=== PATIENT | female | born 1960 | race Caucasian/White ===

== ENCOUNTER 2016-12-01 06:17 | Day surgery (SDC) | payer OTHER ==
[2016-12-01] MEDS ORDERED: LIDOCAINE 2% MDV (20MG/ML) 20ML VIAL IV ONE (14:00)
[2016-12-01] MEDS ORDERED: PROPOFOL 10 MG/ML VIAL IV ONE (14:00)
[2016-12-01] MEDS ORDERED: MIDAZOLAM HCL 2MG/2ML VIAL IV ONE (14:00)
--- NOTE | 2016-12-04 07:41 | Operative Note ---
DATE OF SURGERY: 12/01/2016 SURGEON: Darby Guillory MD OPERATION: COLONOSCOPY. INDICATIONS: This is a 56-year-old female with average risk for colorectal cancer which presented for screening colonoscopy. POSTOPERATIVE DIAGNOSES: 1. An 8 mm sessile descending colon polyp that was removed by snare cautery. 2. Otherwise normal colon. 3. The bowel preparation was suboptimal. ANESTHESIA: Sedation is per Anesthesia. Pulse oximetry was monitored throughout the procedure to maintain O2 saturation of 90% or greater. Supplemental oxygen was administered via nasal cannula. Cardiac and vital signs were monitored throughout the duration of the procedure, and they were stable. The procedure of colonoscopy and risks and benefits of the procedure, including the risk of bleeding and perforation, among others, were explained to the patient who voiced understanding and desired to have the procedure done. Physical examination was performed, and the patient was found stable for sedation. PROCEDURE: The patient was placed in the left lateral position. Sedation was initiated. A digital rectal exam was performed and showed some mild external hemorrhoids with no palpable rectal masses. An Olympus PCF-180AL colonoscope was then inserted into the rectum under direct visualization. It was advanced to the cecum without difficulty. The ileocecal valve and appendiceal orifice were identified and photographed. The colonic mucosa was carefully examined upon introduction of the colonoscope. The bowel preparation was suboptimal. In the descending colon was an 8 mm sessile polyp that was noted and was removed by snare cautery. There were no other lesions noted. The colonoscope was then withdrawn while carefully examining the colonic mucosal surfaces. No other lesions were noted. In the rectum, retroflexion was performed and grade 1 internal hemorrhoids were noted. The colonoscope was then withdrawn and the procedure was terminated. The patient tolerated the procedure well without any immediate complications. She remained with stable vital signs and was transferred to the recovery room. RECOMMENDATIONS: She is to be on a low-residue diet for the next couple of weeks and to avoid any aspirin or Aspirin-like medications for 2 weeks. She is to have repeat colonoscopy for surveillance in 3 years given the suboptimal bowel preparation. Thank you for allowing me to participate in the care of your patient. Darby Guillory MD CC: Dr. Beatriz HARRIS
== END 2016-12-01 08:32 | disposition home or self-care (01) ==
LOC: HOP 06:17
PROVIDERS: ATTEND Internal Medicine Gastroenterology
DX: Z12.11 Encounter for screening for malignant neoplasm of colon (principal); D12.4 Benign neoplasm of descending colon; E11.9 Type 2 diabetes mellitus without complications; Z79.4 Long term (current) use of insulin; I10 Essential (primary) hypertension; E78.00 Pure hypercholesterolemia, unspecified

== ENCOUNTER 2019-01-17 10:15 | Inpatient (IN) | payer BC, OTHER ==
[2019-01-17] MEDS ORDERED: 0.9 % SODIUM CHLORIDE 1,000 ML BAG IV ONE (10:22)
[2019-01-17] MEDS ORDERED: ONDANSETRON HCL IV 4 MG/2 ML VIAL IVP ONE (10:22)
--- NOTE | 2019-01-17 10:28 | Emergency Department Record ---
History of Present Illness - General Chief complaint: Vomiting Stated complaint: VOMITING Time Seen by Provider: 01/17/19 10:21 Source: Patient Mode of Arrival: Ambulatory Limitations: No limitations - History of Present Illness Initial comments: 58 yo female presents with fatigue, nausea, vomiting and elevated blood sugar. She states the onset was yesterday when she started to not feel well. She began vomiting late in the evening. She states her glucometer read at home. It is 546 on arrival at the bedside. She does not recall the last time she had a normal reading but she thinks it was recently. She has not seen her welfare director in over a year. No fever, chest pain, cough, shortness of breath, abdominal pain, or diarrhea. PCP is Dr Beatriz VIRK complaint: Nausea, Vomiting, Other (Elevated blood sugar) Onset/Timin -: Days(s) Description of Vomiting: Watery Description of Diarrhea: Other (None) Location: Other (None) Quality: Other Consistency: Intermittent Improves with: None Worsens with: None Context: Other (Diabetic) Associated Symptoms: Denies other symptoms - Related Data Home Medications Medication Instructions Recorded Confirmed Last Taken Insulin Aspart [Novolog] 1 unit SQ WMEALS 01/17/19 01/17/19 Unknown Insulin Glargine,Hum.rec.anlog 40 unit SQ QAM 01/17/19 01/17/19 01/17/19 [Lantus] Topiramate [Topamax] 100 mg PO DAILY 01/17/19 01/17/19 Unknown Allergies Allergy/AdvReac Type Severity Reaction Status Date / Time No Known Drug Allergies Allergy Verified 01/17/19 10:22 Travel Screening - Travel/Exposure Within Last 30 Days Have you traveled within the last 30 days?: No Review of Systems Constitutional: Reports: Malaise, Weakness. Denies: Chills, Fever Eyes: Denies: Eye discharge ENT: Denies: Congestion, Throat pain Respiratory: Denies: Cough, Dyspnea, Hemoptysis, Stridor, Wheezes Cardiovascular: Denies: Chest pain, Palpitations, Syncope Endocrine: Reports: Fatigue, Polydipsia, Polyuria Gastrointestinal: Reports: Nausea, Vomiting. Denies: Abdominal pain, Constipation, Diarrhea, Hematemesis, Hematochezia, Melena Genitourinary: Denies: Dysuria, Urgency Musculoskeletal: Denies: Arthralgia, Back pain, Myalgia Skin: Denies: Bruising, Change in color, Rash Neurological: Denies: Confusion, Headache Psychiatric: Denies: Anxiety Hematological/Lymphatic: Denies: Anemia, Blood Clots, Easy bleeding, Easy bruising, Swollen glands Past Medical History - SOCIAL HISTORY Smoking Status: Light tobacco smoker (<10/day) - RESPIRATORY Hx Respiratory Disorders: No - CARDIOVASCULAR Hx Cardio Disorders: Yes Hx Hypertension: Yes Comment:: high cholesterol - NEURO Hx Neuro Disorders: Yes Hx of Migraines: Yes - GI Hx GI Disorders: No - Hx Genitourinary Disorders: No - ENDOCRINE Hx Endocrine Disorders: Yes Hx Diabetes: Yes - MUSCULOSKELETAL Hx Musculoskeletal Disorders: Yes - PSYCH Hx Psych Problems: No - HEMATOLOGY/ONCOLOGY Hx Hematology/Oncology Disorders: No Family Medical History Hx Cancer: Mother, Brother/Sister Hx Heart Disease: Mother Physical Exam - General General Appearance: Alert, Oriented x3, Cooperative, No acute distress Limitations: No limitations - Head Head exam: Atraumatic, Normal inspection - Eye Eye exam: Normal appearance. negative: PERRL, Conjunctival injection, Periorbital swelling, Scleral icterus - ENT ENT exam: Normal exam, Mucous membranes moist, Normal external ear exam Ear exam: Normal external inspection Nasal Exam: Normal inspection Mouth exam: Normal external inspection Teeth exam: Normal inspection Throat exam: Normal inspection - Neck Neck exam: Normal inspection, Full ROM. negative: Tenderness - Respiratory Respiratory exam: Normal lung sounds bilaterally. negative: Respiratory distress - Cardiovascular Cardiovascular Exam: Normal rhythm, Normal heart sounds, Tachycardia Peripheral Pulses: 2+: Radial (R), Radial (L) - GI/Abdominal GI/Abdominal exam: Soft. negative: Distended, Guarding, Tenderness - Rectal Rectal exam: Deferred - exam: Deferred - Extremities Extremities exam: Normal inspection. negative: Normal capillary refill, Tenderness - Back Back exam: Denies: CVA tenderness (R), CVA tenderness (L), Tenderness - Neurological Neurological exam: Alert, Oriented X3 - Psychiatric Psychiatric exam: Normal affect, Normal mood - Skin Skin exam: Dry, Intact, Normal color, Warm Course - Reevaluation(s) Reevaluation #1: The CBC was reviewed The WBC is 15 The Venous pH is 7.14 01/17/19 10:59 01/17/19 11:07 Magnesium is 2.2 01/17/19 11:07 EKG EKG #1: 11:02 Rate: 97 Rhythm: sinus [place]: RAD Intervals: QTc 486, QRS 134 ST segments: LVH Prior: no prior 01/17/19 11:11 Acetone large 01/17/19 11:36 The HCO3 is 10 The AG is 35 The BUN is 27 The CR is 1.1 Mg is 2.2 Lipase normal 01/17/19 11:37 Troponin is normal 01/17/19 11:41 I VICTOR MANUEL Rodrigez PRESS ROOM SUPERVISOR. She accepts the patient for admission for further treatment of DKA 01/17/19 11:48 Normal mental status, normal vitals, stable for admission to [facility] Medical Decision Making - Management Options MDM Management: Additional Work-up Planned (e.g. ADM/Transfer/OP Study) - Data Complexity MDM Data: Labs Ordered and/or Reviewed, EKG Ordered and/or Reviewed, Independent Visualization of Image, Tracing, or Specimen, Discussion of Test Results With Performing Physician - Lab Data Result diagrams: 01/17/19 10:35 01/17/19 10:35 - EKG Data -: EKG Interpreted by Pr Critical Care Time Critical Care Time: Yes Total Critical Care Time: 75 Disposition Disposition: Admit Clinical Impression: Diabetic ketoacidosis Qualifiers: Diabetes mellitus type: other specified (including LELO) Diabetes mellitus complication detail: without coma Qualified Code(s): E13.10 - Other specified diabetes mellitus with ketoacidosis without coma Disposition: Still a Patient at [facility] Decision to Admit: Admit from ER Decision to Admit Date: 01/17/19 Decision to Admit Time: 11:45 Condition: (2) Stable Time of Disposition: 11:45 Quality - Quality Measures Quality Measures: N/A - Blood Pressure Screening Does Patient Have Any of the Following: No Blood Pressure Classification: Pre-Hypertensive BP Reading Systolic Measurement: 126 Diastolic Measurement: 55 Screening for High Blood Pressure: < Pre-Hypertensive BP, F/U Documented > [ [id number]] Pre-Hypertensive Follow-up Interventions: Referral to alternative/primary care provider.
[2019-01-17 10:50] LABS: BASO % 0.1 % (0-6); EOS % 0.1 % (0-6); HEMATOCRIT 47.7 % (35.0-47.0); HEMOGLOBIN 15.9 gm/dl (11.6-16.0); LYMPH % 5.6 % (16-45); MEAN CELL VOLUME 93.7 fl (81-97); MEAN CORPUSCULAR HEMOGLOBIN 31.2 pg (27-33); MEAN CORPUSCULAR HGB CONC 33.3 g/dl (32-36); MEAN PLATELET VOLUME 9.5 fl (7.4-10.4); MONO % 2.3 % (0-9); PLATELET COUNT 367 K/uL (130-400); RED BLOOD COUNT 5.09 M/uL (3.80-5.40); RED CELL DISTRIBUTION WIDTH 12.9 % (11.5-14.5); WHITE BLOOD COUNT W/O DIFF 15.7 K/uL (4.2-12.2)
[2019-01-17 11:03] LABS: BLOOD UREA NITROGEN 27 mg/dL (6-20); CREATININE 1.1 mg/dL (0.5-0.9); EST GLOMERULAR FILTRATION RATE 54 mL/min; LIPASE 26 U/L (13-60); TOTAL PROTEIN 7.8 g/dL (6.6-8.7)
[2019-01-17 11:07] LABS: ACETONE,SERUM LARGE (NEGATIVE)
[2019-01-17 11:08] LABS: ALB/GLOB RATIO 1.3 (1.1-1.8); ALBUMIN 4.4 g/dL (4.0-5.0); ALKALINE PHOSPHATASE 152 U/L (35-104); ALT/SGPT 22 U/L (<33); AST/SGOT 20 U/L (10.0-35.0)
[2019-01-17 11:22] LABS: GLUCOSE,RANDOM 527 mg/dL (74-109)
[2019-01-17] MEDS ORDERED: INSULIN REGULAR, HUMAN 100 UNIT in 0.9 % SODIUM CHLORIDE 100ML 100 ML IV SCH ×4 (11:45→12:38)
[2019-01-17] MEDS ORDERED: ACETAMINOPHEN 500 MG TABLET PO PRN (12:38)
[2019-01-17] MEDS ORDERED: SOD CHLOR 0.9% WITH KCL 40MEQ 40 MEQ/1,000 ML IV.SOLN IV ONE (12:38)
[2019-01-17 14:23] LABS: BLOOD UREA NITROGEN 29 mg/dL (6-20); EST GLOMERULAR FILTRATION RATE > 60 mL/min; GLUCOSE,RANDOM 243 mg/dL (74-109)
--- NOTE | 2019-01-17 15:52 | History & Physical ---
History of Present Illness - Date of Service Date of Service for History & Physical: 01/18/19 - History of Present Illness Admitting Diagnosis: DKA History of Present Illness: 58 year old female patient presents to ED with fatigue, nausea, vomiting, and elevated blood sugars at home for the past 12 hours. Patient states she started feeling fatigued evening, and started vomiting that night. Patient reported her home glucometer read "high". Upon arrival to ED, her blood sugar was 546. Patient states she has not seen her patrol agent in over a year. Denied fever, chest pain, cough, shortness of breath, abdominal pain, or diarrhea. Patient reports 1 previous episode of DKA. Patient's past medical history includes Type 1 IDDM, and basal artery migraines. PCP: Dr. Henderson ED Course: WBC 15 Venous pH 7.14 EKG: Rate 97, NSR Large Acetone HCO3 10 Anion Gap 35 BUN 27 Cr 1.1 Lipase normal, troponin negative NS with potassium and insulin drip started at 5U/hr 01/17/19: Patient A&O x 4, resting comfortably in bed with family at bedside. Patient denies any nausea or vomiting at this time, reports fatigue. Has been tolerating ice chips. Will continue insulin drip until acidosis resolves. Travel Screening - Travel/Exposure Within Last 30 Days Have you traveled within the last 30 days?: No - Travel/Exposure Within Last Year Have you traveled outside the [place] in the last year?: No - Additonal Travel Details Have you been exposed to anyone with a communicable illness?: No - Travel Symptoms Symptom Screening: None Review of Systems Reviewed: No additional complaints except as noted below Constitutional: Reports: Malaise, Weakness. Denies: Chills, Fever Eyes: Denies: Eye discharge ENT: Denies: Congestion, Throat pain Respiratory: Denies: Cough, Dyspnea, Hemoptysis, Stridor, Wheezes Cardiovascular: Denies: Chest pain, Palpitations, Syncope Endocrine: Reports: Fatigue, Polydipsia, Polyuria Gastrointestinal: Reports: Nausea, Vomiting. Denies: Abdominal pain, Constipation, Diarrhea, Hematemesis, Hematochezia, Melena Genitourinary: Denies: Dysuria, Urgency Musculoskeletal: Denies: Arthralgia, Back pain, Myalgia Skin: Denies: Bruising, Change in color, Rash Neurological: Denies: Confusion, Headache Psychiatric: Denies: Anxiety Hematological/Lymphatic: Denies: Anemia, Blood Clots, Easy bleeding, Easy bruising, Swollen glands Past Medical History - SOCIAL HISTORY Smoking Status: Light tobacco smoker (<10/day) - RESPIRATORY Hx Respiratory Disorders: No - CARDIOVASCULAR Hx Cardio Disorders: Yes Hx Hypertension: Yes Comment:: high cholesterol - NEURO Hx Neuro Disorders: Yes Hx of Migraines: Yes - GI Hx GI Disorders: No - Hx Genitourinary Disorders: No - ENDOCRINE Hx Endocrine Disorders: Yes Hx Diabetes: Yes - MUSCULOSKELETAL Hx Musculoskeletal Disorders: Yes - PSYCH Hx Psych Problems: No - HEMATOLOGY/ONCOLOGY Hx Hematology/Oncology Disorders: No Family Medical History Hx Cancer: Mother, Brother/Sister Hx Heart Disease: Mother H&P Meds/Allergies - Allergies Allergies: Allergies Allergy/AdvReac Type Severity Reaction Status Date / Time No Known Drug Allergies Allergy Verified 01/17/19 10:22 - Home Medications Home Medications Medication Instructions Recorded Confirmed Last Taken Insulin Aspart [Novolog] 1 unit SQ WMEALS 01/17/19 01/17/19 Unknown Insulin Glargine,Hum.rec.anlog 40 unit SQ QAM 01/17/19 01/17/19 01/17/19 [Lantus] Topiramate [Topamax] 100 mg PO DAILY 01/17/19 01/17/19 Unknown - Active Medications Active Medications: Current Medications Acetaminophen (Tylenol 500mg Tab) 1,000 mg PO Q6H PRN PRN Reason: PAIN - MILD(1-4)/FEVER Enoxaparin Sodium (Lovenox) 40 mg SC DAILY TR Insulin Human Regular 100 unit (/ Sodium Chloride) 101 mls @ 5.05 mls/hr IV TITRATE TR; Protocol Last Admin: 01/17/19 12:16 Dose: 5 units/hr, 5.05 mls/hr Insulin Human Regular 100 unit (/ Sodium Chloride) 101 mls @ 5.05 mls/hr IV TITRATE TR; Protocol Potassium Chloride/Sodium Chloride (Potassium Chl 40meq/) 40 meq in 1,000 mls @ 150 mls/hr IV NOW ONE Stop: 01/17/19 19:17 Last Admin: 01/17/19 14:19 Dose: 150 mls/hr Physical Exam - Vital Signs Vital Signs: Vital Signs - Last 24 Hrs Temp Pulse Pulse Pulse Resp BP BP 01/17/19 12:48 91 H 18 112/59 01/17/19 12:45 98.5 F 94 H 17 119/63 01/17/19 11:14 98 H 20 128/64 01/17/19 10:20 97.8 F 106 H 20 126/55 Pulse Ox 01/17/19 12:48 96 01/17/19 12:45 97 01/17/19 11:14 96 01/17/19 10:20 98 - General General Appearance: Alert, Oriented x3, Cooperative, No acute distress Limitations: No limitations - Head Head exam: Atraumatic, Normal inspection - Eye Eye exam: Normal appearance. negative: PERRL, Conjunctival injection, Periorbital swelling, Scleral icterus - ENT ENT exam: Normal exam, Mucous membranes dry Ear exam: Normal external inspection Nasal Exam: Normal inspection Mouth exam: Normal external inspection - Neck Neck exam: Normal inspection, Full ROM. negative: Tenderness - Respiratory Respiratory exam: Normal lung sounds bilaterally. negative: Respiratory distress - Cardiovascular Cardiovascular Exam: Regular rate, Normal rhythm, Normal heart sounds Peripheral Pulses: 2+: Radial (R), Radial (L), Dorsalis Pedis (R), Dorsalis Pedis (L) - GI/Abdominal GI/Abdominal exam: Soft. negative: Distended, Guarding, Tenderness - Rectal Rectal exam: Deferred - exam: Deferred - Extremities Extremities exam: Normal inspection, Normal capillary refill. negative: Tenderness - Back Back exam: Denies: CVA tenderness (R), CVA tenderness (L), Tenderness - Neurological Neurological exam: Alert, Oriented X3 - Psychiatric Psychiatric exam: Normal affect, Normal mood - Skin Skin exam: Dry, Intact, Normal color, Warm Results - Labs Result Diagrams: 01/18/19 06:25 01/18/19 06:25 Labs Last 24 Hours: Laboratory Results - last 24 hr 01/17/19 01/17/19 01/17/19 10:24 10:35 10:35 WBC 15.7 H RBC 5.09 Hgb 15.9 Hct 47.7 H MCV 93.7 MCH 31.2 MCHC 33.3 RDW 12.9 Plt Count 367 MPV 9.5 Neutrophils % 91.0 H Band Neutrophils % 2.0 Lymphocytes % 5.6 L Monocytes % 2.3 Eosinophils % 0.1 Basophils % 0.1 Lymphocytes 5.0 L Monocytes 2.0 Basophils 0.0 Eosinophil Count 0.0 VBG pH 7.14 L Sodium 138 Potassium 4.3 Chloride 93 L Carbon Dioxide 10.0 L Anion Gap 35.0 H BUN 27 H Creatinine 1.1 H Estimated GFR 54 POC Glucose 546 H* Random Glucose 527 H* Hemoglobin A1c Calcium 9.9 Magnesium Total Bilirubin 0.40 AST 20 ALT 22 Alkaline Phosphatase 152 H Troponin T Total Protein 7.8 Albumin 4.4 Globulin 3.4 Albumin/Globulin Ratio 1.3 Lipase 26 Acetone, Qual Large 01/17/19 01/17/19 01/17/19 10:35 10:35 10:35 WBC RBC Hgb Hct MCV MCH MCHC RDW Plt Count MPV Neutrophils % Band Neutrophils % Lymphocytes % Monocytes % Eosinophils % Basophils % Lymphocytes Monocytes Basophils Eosinophil Count VBG pH Sodium Potassium Chloride Carbon Dioxide Anion Gap BUN Creatinine Estimated GFR POC Glucose Random Glucose Hemoglobin A1c 11.50 H Calcium Magnesium 2.2 Total Bilirubin AST ALT Alkaline Phosphatase Troponin T < 0.010 Total Protein Albumin Globulin Albumin/Globulin Ratio Lipase Acetone, Qual 01/17/19 01/17/19 01/17/19 12:58 13:00 14:05 WBC RBC Hgb Hct MCV MCH MCHC RDW Plt Count MPV Neutrophils % Band Neutrophils % Lymphocytes % Monocytes % Eosinophils % Basophils % Lymphocytes Monocytes Basophils Eosinophil Count VBG pH Sodium 138 Potassium 4.7 H Chloride 97 L Carbon Dioxide 19.0 L Anion Gap 22.0 H BUN 29 H Creatinine 1.0 H Estimated GFR > 60 POC Glucose 283 H Cancelled Random Glucose 243 H Hemoglobin A1c Calcium 9.3 Magnesium Total Bilirubin AST ALT Alkaline Phosphatase Troponin T Total Protein Albumin Globulin Albumin/Globulin Ratio Lipase Acetone, Qual 01/17/19 01/17/19 15:00 15:01 WBC RBC Hgb Hct MCV MCH MCHC RDW Plt Count MPV Neutrophils % Band Neutrophils % Lymphocytes % Monocytes % Eosinophils % Basophils % Lymphocytes Monocytes Basophils Eosinophil Count VBG pH Sodium Potassium Chloride Carbon Dioxide Anion Gap BUN Creatinine Estimated GFR POC Glucose 172 H Cancelled Random Glucose Hemoglobin A1c Calcium Magnesium Total Bilirubin AST ALT Alkaline Phosphatase Troponin T Total Protein Albumin Globulin Albumin/Globulin Ratio Lipase Acetone, Qual VTE H&P Assessment - Risk for VTE Risk for VTE: Yes Risk Level: Moderate Risk Assessment Date: 01/17/19 Risk Assessment Time: 16:00 VTE Orders Placed or Will Be Placed: Yes Plan - Inpatient Certification Inpatient Certification: Admit to inpatient care: Based on my medical assessment, after consideration of patient's risk factors (age, co-morbidities and patient presenting symptoms and acuity), I expect that this patient will remain in the hospital greater than or equal to two midnights and that the services needed warrant inpatient care because: Patient Risk Factors: [type 1 diabetes, DKA] Estimated length of stay: The patient may reasonably be expected to be discharged or transferred to a hospital within 24-48 hours after admission to [facility]. Services needed: [Insulin drip, IV fluids, serial lab monitoring, cardiac monitoring] Post hospital care (if known): [] I certify that my determination is in accordance with my understanding of Medicare requirements for reasonable and necessary inpatient services. 01/18/19 11:05 - Detailed Diagnosis and Plan (1) Diabetic ketoacidosis Current Visit: Yes Status: Acute Qualifiers: Diabetes mellitus type: other specified (including LELO) Diabetes mellitus complication detail: without coma Qualified Code(s): E13.10 - Other specified diabetes mellitus with ketoacidosis without coma Base Code: E13.10 - OTH DIABETES MELLITUS WITH KETOACIDOSIS WITHOUT COMA Comment: 01/17/19: - Type 1 diabetes, reports Lantus 40U qam and Novolog SS TID - Reports typical am fasting BS 180-200 - Nausea/vomiting for 12 hours FISHER POT - BS in ED: 564, pH 7.14, HCO3 10, anion gap 35, large acetone - Insulin drip started at 5U/hr, NS with K+ 150ml/hr - Hourly accucheck - Repeat BMP in 4 hours - UA pending (2) DVT prophylaxis Current Visit: Yes Status: Acute Base Code: [id number] - Comment: 01/17/19: - Patient moderate risk due to hospitalization and illness - Lovenox 40mg SQ daily (3) Full code status Current Visit: Yes Status: Acute Base Code: Z78.9 - OTHER SPECIFIED HEALTH STATUS Comment: 01/17/19: - Patient is a full code this admission
[2019-01-17] MEDS ORDERED: MAGNESIUM OXIDE 400 MG TABLET PO ONE (16:32)
[2019-01-17 18:24] LABS: BLOOD UREA NITROGEN 27 mg/dL (6-20); CREATININE 0.9 mg/dL (0.5-0.9); EST GLOMERULAR FILTRATION RATE > 60 mL/min; GLUCOSE,RANDOM 95 mg/dL (74-109)
[2019-01-17] MEDS: 0.9 % SODIUM CHLORIDE 1000ML 1,000 ML IV SCH (21:52)
[2019-01-17] MEDS ORDERED: HUMULIN R 100 UNIT/ML VIAL SQ PRN (22:00)
[2019-01-18 04:35] LABS: URINE APPEARANCE SL CLOUDY; URINE BILIRUBIN MODERATE (NEGATIVE); URINE BLOOD NEGATIVE (NEGATIVE); URINE COLOR YELLOW; URINE KETONE 40 mg/dL (NEGATIVE); URINE LEUKOCYTE ESTERASE TRACE (NEGATIVE); URINE NITRITE NEGATIVE (NEGATIVE); URINE PROTEIN NEGATIVE (NEGATIVE); URINE UROBILINOGEN 0.2 E.U./dL (0.20 - 1.00)
[2019-01-18 06:37] LABS: BASO % 0.3 % (0-6); EOS % 0.8 % (0-6); GRAN % 64.3 % (47-80); HEMATOCRIT 41.4 % (35.0-47.0); HEMOGLOBIN 14.3 gm/dl (11.6-16.0); LYMPH % 27.3 % (16-45); MEAN CELL VOLUME 92.2 fl (81-97); MEAN CORPUSCULAR HEMOGLOBIN 31.8 pg (27-33); MEAN CORPUSCULAR HGB CONC 34.5 g/dl (32-36); MEAN PLATELET VOLUME 8.9 fl (7.4-10.4); MONO % 7.3 % (0-9); PLATELET COUNT 279 K/uL (130-400); RED BLOOD COUNT 4.49 M/uL (3.80-5.40); RED CELL DISTRIBUTION WIDTH 12.9 % (11.5-14.5)
[2019-01-18 06:49] LABS: BLOOD UREA NITROGEN 24 mg/dL (6-20); CREATININE 0.7 mg/dL (0.5-0.9); EST GLOMERULAR FILTRATION RATE > 60 mL/min; GLUCOSE,RANDOM 173 mg/dL (74-109)
[2019-01-18 06:51] LABS: ACETONE,SERUM SMALL (NEGATIVE)
[2019-01-18 06:55] LABS: URINE RBC 0 - 2 (NONE SEEN)
[2019-01-18 06:56] LABS: URINE BACTERIA 4+; URINE WBC 16 - 20 (0-2/hpf)
[2019-01-18] MEDS: 0.9 % SODIUM CHLORIDE 1000ML 1,000 ML IV SCH (07:58)
[2019-01-18] MEDS: LEVEMIR FLEXTOUCH 100 UNIT/ML INSULIN PEN SQ SCH ×2 (09:58→10:01)
[2019-01-18] MEDS ORDERED: ENOXAPARIN 40 MG/0.4 ML SYR SC SCH (10:00)
[2019-01-18] MEDS ORDERED: CEFTRIAXONE 1GM/50ML BAG 1 GM/50 ML BAG IVPB ONE (10:28)
--- NOTE | 2019-01-18 11:13 | Discharge Summary ---
Providers Discharge Summary Date: 01/18/19 Date of admission: 01/17/19 12:34 Expected Date of Discharge: 01/18/19 Attending physician: TRISTAN RIVERA Primary care physician: CINDY VILLALOBOS D.O. Physical Exam - Vital Signs Vital Signs: Vital Signs - Last 24 Hrs Temp Pulse Pulse Resp BP Pulse Ox 01/18/19 09:00 12 01/18/19 08:00 98.1 F 76 18 104/53 94 L 01/18/19 04:00 98.1 F 69 18 119/62 97 01/18/19 00:00 98.1 F 78 18 103/51 94 L 01/17/19 20:00 98.2 F 82 16 110/58 93 L 01/17/19 16:00 99.2 F 90 16 128/62 97 01/17/19 12:48 91 H 18 112/59 96 01/17/19 12:45 98.5 F 94 H 17 119/63 97 01/17/19 11:14 98 H 20 128/64 96 - General General Appearance: Alert, Oriented x3, Cooperative, No acute distress Limitations: No limitations - Head Head exam: Atraumatic, Normal inspection - Eye Eye exam: Normal appearance. negative: PERRL, Conjunctival injection, Periorbital swelling, Scleral icterus - ENT ENT exam: Normal exam, Mucous membranes moist Ear exam: Normal external inspection Nasal Exam: Normal inspection Mouth exam: Normal external inspection - Neck Neck exam: Normal inspection, Full ROM. negative: Tenderness - Respiratory Respiratory exam: Normal lung sounds bilaterally. negative: Respiratory distress - Cardiovascular Cardiovascular Exam: Regular rate, Normal rhythm, Normal heart sounds Peripheral Pulses: 2+: Radial (R), Radial (L), Dorsalis Pedis (R), Dorsalis Pedis (L) - GI/Abdominal GI/Abdominal exam: Soft. negative: Distended, Guarding, Tenderness - Rectal Rectal exam: Deferred - exam: Deferred - Extremities Extremities exam: Normal inspection, Normal capillary refill. negative: Tenderness - Back Back exam: Denies: CVA tenderness (R), CVA tenderness (L), Tenderness - Neurological Neurological exam: Alert, Oriented X3 - Psychiatric Psychiatric exam: Normal affect, Normal mood - Skin Skin exam: Dry, Intact, Normal color, Warm Hospitalization - Hospitalization Admission Diagnosis: DKA - Problem List/Discharge Diagnosis (1) Diabetic ketoacidosis Current Visit: Yes Status: Acute Discharge Diagnosis: Diabetes mellitus type: other specified (including LELO) Diabetes mellitus complication detail: without coma Qualified Code(s): E13.10 - Other specified diabetes mellitus with ketoacidosis without coma Base Code: E13.10 - OTH DIABETES MELLITUS WITH KETOACIDOSIS WITHOUT COMA Comment: 01/18/19: - Type 1 diabetes, reports Lantus 40U qam and Novolog SS TID - Reports typical am fasting BS 180-200 - 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 - BS in ED: 564, pH 7.14, HCO3 10, anion gap 35, large acetone - Acidosis resolved, pH 7.38, HC03 23, Anion gap 12 - Insulin drip stopped at 1800 01/17, patient has been managed with SS q4h - Tolerating PO intake - A1C 11.5 - Patient reports appointment with endocrin 02/05/19 - Resume home insulin dosing upon dc (2) UTI (urinary tract infection) Current Visit: Yes Status: Acute Base Code: N39.0 - URINARY TRACT INFECTION , SITE NOT SPECIFIED Comment: 01/18/19: - UA: trace leuk, WBC 16-20, Bact 4+ - Rocephin 1gm IVPB - Will dc home on Bactrim DS BID x 5 days - Patient encouraged to increase fluid intake (3) DVT prophylaxis Current Visit: Yes Status: Acute Base Code: CAQ5277 - Comment: 01/18/19: - Patient moderate risk due to hospitalization and illness - Lovenox 40mg SQ daily while hospitalized, no need for prophylaxis at home as patient will resume usual activity (4) Full code status Current Visit: Yes Status: Acute Base Code: Z78.9 - OTHER SPECIFIED HEALTH STATUS Comment: 01/18/19: - Patient is a full code this admission - Hospitalization Course Disposition: Home, Self-Care Hospital Course: 58 year old female patient presents to ED with fatigue, nausea, vomiting, and elevated blood sugars at home for the past 12 hours. Patient states she started feeling fatigued evening, and started vomiting that night. Patient reported her home glucometer read "high". Upon arrival to ED, her blood sugar was 546. Patient states she has not seen her salvage clerk in over a year. Denied fever, chest pain, cough, shortness of breath, abdominal pain, or diarrhea. Patient reports 1 previous episode of DKA. Patient's past medical history includes Type 1 IDDM, and basal artery migraines. PCP: Dr. Villalobos ED Course: WBC 15 Venous pH 7.14 EKG: Rate 97, NSR Large Acetone HCO3 10 Anion Gap 35 BUN 27 Cr 1.1 Lipase normal, troponin negative NS with potassium and insulin drip started at 5U/hr 01/17/19: Patient A&O x 4, resting comfortably in bed with family at bedside. Patient denies any nausea or vomiting at this time, reports fatigue. Has been tolerating ice chips. Will continue insulin drip until acidosis resolves. 01/18/19: Patient A&O x 4, resting comfortably in bed with family at bedside. Patient has been tolerating PO intake, acidosis resolved, have transitioned back to SQ insulin. UA indicates UTI, given 1 dose of Rocephin IVPB, will dc on Bactrim. Patient to follow-up with salvage clerk 02/05/19. 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 01/17/19 10:58 EKG NOW Abnormal Labs: Abnormal Lab Results 01/17/19 01/17/19 01/17/19 Range/Units 10:24 10:35 10:35 WBC 15.7 H (4.2-12.2) K/uL Hct 47.7 H (35.0-47.0) % Neutrophils % 91.0 H (47-80) % Lymphocytes % 5.6 L (16-45) % Lymphocytes 5.0 L (16-45) % VBG pH 7.14 L (7.33-7.43) Potassium (3.4-4.5) mmol/L Chloride 93 L (98-107) mmol/L Carbon Dioxide 10.0 L (22-29) mmol/L Anion Gap 35.0 H (7-16) BUN 27 H (6-20) mg/dL Creatinine 1.1 H (0.5-0.9) mg/dL POC Glucose 546 H* (70-110) mg/dL Random Glucose 527 H* (74-109) mg/dL Hemoglobin A1c (4.0-6.00) % Calcium (8.6-10.0) mg/dL Alkaline Phosphatase 152 H (35-104) U/L Urine Glucose (UA) (NEGATIVE) Urine Ketones (NEGATIVE) Urine Bilirubin (NEGATIVE) Ur Leukocyte Esterase (NEGATIVE) 01/17/19 01/17/19 01/17/19 Range/Units 10:35 12:58 14:05 WBC (4.2-12.2) K/uL Hct (35.0-47.0) % Neutrophils % (47-80) % Lymphocytes % (16-45) % Lymphocytes (16-45) % VBG pH (7.33-7.43) Potassium 4.7 H (3.4-4.5) mmol/L Chloride 97 L (98-107) mmol/L Carbon Dioxide 19.0 L (22-29) mmol/L Anion Gap 22.0 H (7-16) BUN 29 H (6-20) mg/dL Creatinine 1.0 H (0.5-0.9) mg/dL POC Glucose 283 H (70-110) mg/dL Random Glucose 243 H (74-109) mg/dL Hemoglobin A1c 11.50 H (4.0-6.00) % Calcium (8.6-10.0) mg/dL Alkaline Phosphatase (35-104) U/L Urine Glucose (UA) (NEGATIVE) Urine Ketones (NEGATIVE) Urine Bilirubin (NEGATIVE) Ur Leukocyte Esterase (NEGATIVE) 01/17/19 01/17/19 01/17/19 Range/Units 15:00 16:20 18:00 WBC (4.2-12.2) K/uL Hct (35.0-47.0) % Neutrophils % (47-80) % Lymphocytes % (16-45) % Lymphocytes (16-45) % VBG pH (7.33-7.43) Potassium 4.7 H (3.4-4.5) mmol/L Chloride (98-107) mmol/L Carbon Dioxide 20.0 L (22-29) mmol/L Anion Gap 17.0 H (7-16) BUN 27 H (6-20) mg/dL Creatinine (0.5-0.9) mg/dL POC Glucose 172 H 127 H (70-110) mg/dL Random Glucose (74-109) mg/dL Hemoglobin A1c (4.0-6.00) % Calcium (8.6-10.0) mg/dL Alkaline Phosphatase (35-104) U/L Urine Glucose (UA) (NEGATIVE) Urine Ketones (NEGATIVE) Urine Bilirubin (NEGATIVE) Ur Leukocyte Esterase (NEGATIVE) 01/18/19 01/18/19 01/18/19 Range/Units 00:00 02:00 04:25 WBC (4.2-12.2) K/uL Hct (35.0-47.0) % Neutrophils % (47-80) % Lymphocytes % (16-45) % Lymphocytes (16-45) % VBG pH (7.33-7.43) Potassium (3.4-4.5) mmol/L Chloride (98-107) mmol/L Carbon Dioxide (22-29) mmol/L Anion Gap (7-16) BUN (6-20) mg/dL Creatinine (0.5-0.9) mg/dL POC Glucose 188 H 196 H (70-110) mg/dL Random Glucose (74-109) mg/dL Hemoglobin A1c (4.0-6.00) % Calcium (8.6-10.0) mg/dL Alkaline Phosphatase (35-104) U/L Urine Glucose (UA) 100 mg/dl H (NEGATIVE) Urine Ketones 40 mg/dl H (NEGATIVE) Urine Bilirubin Moderate H (NEGATIVE) Ur Leukocyte Esterase Trace H (NEGATIVE) 01/18/19 Range/Units 06:25 WBC (4.2-12.2) K/uL Hct (35.0-47.0) % Neutrophils % (47-80) % Lymphocytes % (16-45) % Lymphocytes (16-45) % VBG pH (7.33-7.43) Potassium (3.4-4.5) mmol/L Chloride (98-107) mmol/L Carbon Dioxide (22-29) mmol/L Anion Gap (7-16) BUN 24 H (6-20) mg/dL Creatinine (0.5-0.9) mg/dL POC Glucose (70-110) mg/dL Random Glucose 173 H (74-109) mg/dL Hemoglobin A1c (4.0-6.00) % Calcium 8.4 L (8.6-10.0) mg/dL Alkaline Phosphatase (35-104) U/L Urine Glucose (UA) (NEGATIVE) Urine Ketones (NEGATIVE) Urine Bilirubin (NEGATIVE) Ur Leukocyte Esterase (NEGATIVE) Condition at Discharge: (1) Good Discharge Medications - Discharge Medications Prescriptions: Sulfamethoxazole/Trimethoprim [Bactrim Ds Tablet] 1 each PO BID #10 tablet Home Medications: Ambulatory Orders Insulin Aspart [Novolog] 1 unit SQ WMEALS 01/17/19 [Last Taken Unknown] Insulin Glargine,Hum.rec.anlog [Lantus] 40 unit SQ QAM 01/17/19 [Last Taken ] Topiramate [Topamax] 100 mg PO DAILY 01/17/19 [Last Taken Unknown] Sulfamethoxazole/Trimethoprim [Bactrim Ds Tablet] 1 each PO BID #10 tablet 01/18 [Last Taken Unknown] Discharge Plan - Discharge Instructions Activity at Discharge: Increase Activity as Tolerated Diet at Discharge: Advance to Usual Diet Additional Instructions: -Starting tonight, take the Bactrim twice a day for 5 days -Increase fluids -Check your blood sugar regularly and take your insulin per your sliding scale -Follow-up with endocrinology as scheduled 02/05/19 Quality Measures - Quality Measures Quality Measures: Documentation of Current Medications in Medical Record, Screening for High Blood Pressure and F/U Documented - Current Medications Quality Measure: Measure #130: Documentation of Current Medications Documentation of Current Medications: <Current Medications Documented/Reviewed> [[id number]] - Blood Pressure Screening Quality Measure: Screening for High Blood Pressure and Follow-Up Documented Does Patient Have Any of the Following: No Blood Pressure Classification: Pre-Hypertensive BP Reading Systolic Measurement: 126 Diastolic Measurement: 55 Screening for High Blood Pressure: < Pre-Hypertensive BP, F/U Documented > [ [id number]] Pre-Hypertensive Follow-up Interventions: Referral to alternative/primary care provider. - Elder Abuse Suspicion Index EASI Reference Information: Estrella ESPINOSA, Musa C, Tiesha D, Vipul Saucedo.Development and validation of a tool to assist physicians identification of elder abuse: The Elder Abuse Suspicion Index (EASI ). Journal of Elder Abuse and Neglect, 2008; 20 (3): 276-300.
== END 2019-01-18 13:19 | disposition home or self-care (01) | DRG 638 ==
LOC: ER 10:15 → MEDSURG 12:34
PROVIDERS: ADMIT Internal Medicine; ATTEND Internal Medicine
DX: E13.10 Other specified diabetes mellitus with ketoacidosis without coma (principal); N39.0 Urinary tract infection, site not specified; R53.83 Other fatigue; I10 Essential (primary) hypertension; E10.8 Type 1 diabetes mellitus with unspecified complications; Z79.4 Long term (current) use of insulin; E78.00 Pure hypercholesterolemia, unspecified; F17.210 Nicotine dependence, cigarettes, uncomplicated
CPT/HCPCS: 36416; 80048; 80053; 81001; 82009; 82310; 82800; 82948; 83036; 83690; 83735; 84484; 85025; 85027; 93005; 93010; 96361; 96365; 96375; 99223; 99285; J0696; J2405; J7030